=== PATIENT | male | born 1995 | race Two or more races ===

== ENCOUNTER 2025-05-22 02:01 | Emergency (ER) | payer SELFPAY ==
[~2025-05-22] VITALS: Ht 175.3 cm; Wt 88.5 kg
[2025-05-22 06:00] VITALS: BP 120/75; TEMP 98; O2SAT 99
== END 2025-05-22 06:01 | disposition home or self-care (01) ==
LOC: ER 02:03
DX: S83.8X1A Sprain of other specified parts of right knee, initial encounter (principal); S80.01XA Contusion of right knee, initial encounter; E10.9 Type 1 diabetes mellitus without complications; R51.9 Headache, unspecified; Z79.4 Long term (current) use of insulin; Z91.09 Other allergy status, other than to drugs and biological substances; V49.49XA Driver injured in collision with other motor vehicles in traffic accident, initial encounter; Y93.89 Activity, other specified; Y92.488 Other paved roadways as the place of occurrence of the external cause; Y99.8 Other external cause status
CPT/HCPCS: 70450-TC; 73564-TC